=== PATIENT | female | born 1975 | race Caucasian/White ===

== ENCOUNTER 2020-09-15 13:28 | Emergency (ER) | payer SELFPAY ==
[2020-09-15 13:29] VITALS: BP 147/78; PULSE 99; RESP 17; TEMP 37.4; O2SAT 98; BMI 32.5
[2020-09-15 14:40] LABS: Basophils # 0.1 K/mm3 (0-0.2); Basophils % 0.6 % (0.1-2.0); Eosinophils % 0.1 % (0.1-12.0); Hematocrit 40.3 % (37.0-47.0); Hemoglobin 13.7 g/dL (12.2-16.2); Lymphocytes # 2.2 K/mm3 (0.7-4.5); Lymphocytes % 21.5 % (10-50); Mean Corpuscular HGB Conc 33.9 g/dL (31.8-35.4); Mean Corpuscular Hemoglobin 26.3 pg (27.0-31.2); Mean Corpuscular Volume 77.4 fl (81-99); Monocytes # 0.4 K/mm3 (0.1-1.0); Monocytes % 3.7 % (1.7-9.3); Neutrophils # 7.6 K/mm3 (1.8-7.8); Neutrophils % 74.2 % (37.0-80.0); Platelet Count 269 K/mm3 (142-424); White Blood Count 10.3 K/mm3 (4.8-10.8)
[2020-09-15 14:45] LABS: Chloride 107 mmol/L (98-107)
[2020-09-15 14:46] LABS: Potassium 3.6 mmoL/L (3.5-5.1); Sodium 136 mmol/L (136-145)
[2020-09-15 14:48] LABS: Alanine Aminotransferase 19 U/L (12-78); Alkaline Phosphatase 96 U/L (38-126); Anion Gap 12.6 mEq/L (5-15); Aspartate Amino Transferase 31 U/L (14-36); Bilirubin,Total 0.7 mg/dl (0.2-1.3); Blood Urea Nitrogen 12 mg/dl (7-17); Carbon Dioxide 20 mmol/L (22.0-30.0); Creatinine Clearance Estimated 135 mL/min (50-200); Estimated Glomerular Filt Rate 78 ml/min (>60); GFR (African American) 95 ML/MIN (>60)
[2020-09-15 14:49] LABS: Albumin Level 4.1 g/dl (3.5-5.0); Albumin/Globulin Ratio 1.2 (1.1-1.8); Globulin 3.3 g/dL (1.3-3.2); Glucose 141 mg/dl (74-100); Total Protein,Serum 7.4 g/dl (6.3-8.2)
--- NOTE | 2020-09-15 15:12 | [facility].EDGENADL ---
ED Disposition Clinical Impression: Dehydration, Nausea and vomiting Disposition: Home, Self-Care Condition on Discharge: Fair Instructions: DI for Diarrhea and Traveler's Diarrhea -- Adult, DI for Diarrhea and Traveler's Diarrhea -- Child, DI for Nausea -- Adult, DI for Nausea -- Child Additional Instructions: Need to follow-up with a asian studies professor Prescriptions: Ondansetron [Zofran 4mg ODT] 4 mg PO TIDP PRN #30 tab.rapdis PRN Reason: Nausea Referrals: Chapin Biswas [Primary Care Provider] - - Critical Care Critical Care Time: No Attestation: On 09/15/20, the high probability of a clinically significant, sudden or life threatening deterioration of the following system(s) required my full and direct attention, intervention and personal management. The time I documented below is in addition to time spent performing reported procedures but includes the following listed in this critical care notation. Medical Decision Making - Medical Records Medical records reviewed: Yes: I reviewed the patient's medical records. - Mitchel Inquiry Pt receiving controlled substance: No Vital Signs: 09/15/20 13:29 09/15/20 16:15 09/15/20 16:30 Temperature 99.3 F Temperature Source Oral Pulse Rate 55 L 54 L Pulse Rate [Right] 99 H Respiratory Rate 17 Blood Pressure 142/82 H 142/81 H Blood Pressure [Right Arm] 147/78 H Blood Pressure Mean 94 Blood Pressure Mean [Right Arm] 101 02 Sat by Pulse Oximetry 98 97 96 Oxygen Delivery Method Room Air - Lab Data Lab results reviewed: Yes: I reviewed the patient's lab results. Lab Results 09/15/20 13:40: WBC 10.3, RBC 5.20, Hgb 13.7, Hct 40.3, MCV 77.4 L, MCH 26.3 L, MCHC 33.9, RDW 15.0, Plt Count 269, MPV 9.0, Neut % (Auto) 74.2, Lymph % (Auto) 21.5, Wirt % (Auto) 3.7, Eos % (Auto) 0.1, Baso % (Auto) 0.6, Neut # (Auto) 7.6, Lymph # (Auto) 2.2, Wirt # (Auto) 0.4, Eos # (Auto) 0.0, Baso # (Auto) 0.1 09/15/20 13:40: Sodium 136, Potassium 3.6, Chloride 107, Carbon Dioxide 20 L, Anion Gap 12.6, BUN 12, Creatinine 0.80, Estimated Creat Clear 135, Estimated GFR 78, Est GFR ( Amer) 95, Glucose 141 H, Calcium 9.0, Total Bilirubin 0.7, AST 31, ALT 19, Alkaline Phosphatase 96, Total Protein 7.4, Albumin 4.1, Globulin 3.3 H, Albumin/Globulin Ratio 1.2 09/15/20 13:40: Serum HCG, Qual Negative 09/15/20 15:33: Urine Color Yellow, Urine Appearance Clear, Urine pH 6.5, Ur Specific [place] 1.025, Urine Protein Negative, Urine Glucose (UA) Negative, Urine Ketones Trace, Urine Blood Negative, Urine Nitrate Negative, Urine Bilirubin Negative, Urine Urobilinogen 0.2, Ur Leukocyte Esterase Trace, Urine RBC None, Urine WBC 5-10, Ur Squamous Epith Cells 3-5, Urine Bacteria 1+, Urine Yeast Occasional Result diagrams: 09/15/20 13:40 09/15/20 13:40 Orders (Tests/Meds): ED MEDICATIONS Discontinued Medications Generic Name Dose Route Start Last Admin Trade Name Freq PRN Reason Stop Dose Admin Lactated Ringer's 1,000 mls @ 999 mls/hr 09/15/20 14:00 09/15/20 13:56 Lactated Ringer's 1000 Ml Bag IV 09/15/20 15:00 999 mls/hr .Q1H1M MIGNON Administration Lactated Ringer's 1,000 mls @ 999 mls/hr 09/15/20 15:15 09/15/20 15:28 Lactated Ringer's 1000 Ml Bag IV 09/15/20 16:15 999 mls/hr .Q1H1M MIGNON Administration Ondansetron HCl 4 mg 09/15/20 13:53 09/15/20 13:56 Ondansetron 4mg/2ml Vial IV 09/15/20 13:54 4 mg ONCE ONE Administration General Adult HPI - General Chief complaint: Nausea/Vomiting/Diarrhea Stated complaint: vomiting, dry heaving Time Seen by Provider: 09/15/20 13:35 Mode of Arrival: Family Vehicle Limitations: No Limitations Description of Symptoms (Recalled from ER Triage Doc. by RN): PATIENT C/O NAUSEA AND VOMITTING FOR THE LAST SEVERAL DAYS. PT REPORTS SHE WAS RECENTLY DIAGNOSED WITH A STOMACH INFECTION, AND IS TAKING TWO DIFFERENT ANTIBIOTICS AT THIS TIME. PT DENIES ANY LOCALIZED ABDOMINAL PAIN IN ED TRIAGE. - Histor
[2020-09-15 15:30] LABS: HCG Qualitative, Serum Negative (Negative)
[2020-09-15 15:39] LABS: Microscopic, Urine URINE MICROSCOPIC (MICROSCOPIC)
[2020-09-15 16:13] LABS: Appearance,Urine CLEAR (Clear); Bilirubin,Urine Negative (Negative); Blood, Urine Negative (Negative); Color,Urine YELLOW (Yellow); Glucose,Urine (UA) Negative (Negative); Ketones,Urine TRACE (Negative); Leukocyte Esterase,Urine TRACE (Negative); Nitrate,Urine Negative (Negative); PH,Urine 6.5 (5.0-8.5); Protein,Urine Negative (Negative); Specific Gravity, Urine 1.025 (1.005-1.030); Urobilinogen,Urine 0.2 EU/dl (0.2)
[2020-09-15 16:15] VITALS: BP 142/82; PULSE 55; O2SAT 97
[2020-09-15 16:21] LABS: Bacteria,Urine 1+ /lpf; Yeast,Urine Occasional /lpf
[2020-09-15 16:30] VITALS: BP 142/81; PULSE 54; O2SAT 96
[2020-09-15 17:00] VITALS: BP 151/87; PULSE 77; RESP 17; TEMP 36.8; O2SAT 98
== END 2020-09-15 17:15 | disposition home or self-care (01) ==
PROVIDERS: Emergency Provider Emergency Medicine; PCP Internal Medicine
DX: E86.0 Dehydration (principal)
CPT/HCPCS: 80053; 81001; 84703; 85025; 99283; J2405